=== PATIENT | male | born 1950 | race Caucasian/White ===

== ENCOUNTER 2017-09-01 07:55 | Day surgery (SDC) | payer MEDICARE, OTHER ==
[~2017-09-01] VITALS: Ht 180.3 cm; Wt 77.3 kg
[~2017-09-01 07:55] MED LIST: ASPI-496 PO; ATOR10TA PO; BUPIVACAINE/PF 0.25% ONE; EPINEPHRINE 1 MG/ML, 1ML ONE; ESOM20CA PO; GABA300C10 PO; HYDR-3237 PO; LIDOCAINE/PF 0.5% ,50ML ONE; THROMBIN 5,000 UNIT VIAL TP ONE; VANCOMYCIN 1,000 MG ONE
[2017-09-01] MEDS ORDERED: LACTATED RINGERS 1,000 ML IV SCH (08:52)
[2017-09-01 08:54] VITALS: BP 131/83
[2017-09-01] MEDS ORDERED: LIDOCAINE 1%, 2ML SQ PRN (09:00)
[2017-09-01] MEDS ORDERED: SUFentanil 50 MCG/ML, 1ML ONE (09:57)
[2017-09-01] MEDS ORDERED: MIDAZOLAM 1 MG/ML, 2ML ONE (09:57)
[2017-09-01] MEDS ORDERED: DEXAMETHASONE 4 MG/ML, 1ML ONE (10:38)
[2017-09-01] MEDS ORDERED: ROCURONIUM 10MG/ML,5ML ONE (10:38)
[2017-09-01] MEDS ORDERED: LIDOCAINE-MPF 2% ,5ML ONE (10:39)
[2017-09-01] MEDS ORDERED: PROPOFOL 10 MG/ML, 20ML ONE (10:39)
[2017-09-01] MEDS ORDERED: CEFAZOLIN 1,000 MG ONE ×2 (10:50)
[2017-09-01] MEDS ORDERED: PHENYLEPHRINE 10 MG/ML ONE (11:06)
[2017-09-01] MEDS ORDERED: ONDANSETRON 2MG/ML, 2ML ONE ×2 (12:11)
[2017-09-01] MEDS ORDERED: GLYCOPYRROLATE 0.2MG/1ML, 5ML ONE (12:25)
[2017-09-01] MEDS ORDERED: NEOSTIGMINE 1 MG/ML, 10ML ONE (12:25)
[2017-09-01] MEDS ORDERED: FENTANYL PF 100 MCG/2ML IV PRN (13:00)
[2017-09-01] MEDS ORDERED: hydrALAzine 20 MG/ML, 1ML IV PRN (13:00)
[2017-09-01] MEDS ORDERED: ACETAMINOPHEN 325 MG TABLET PO PRN (13:00)
[2017-09-01] MEDS ORDERED: MEPERIDINE/PF 25MG/0.5ML IVPush PRN (13:00)
[2017-09-01] MEDS ORDERED: LABETALOL 5MG/ML, 20ML IV PRN (13:00)
[2017-09-01] MEDS ORDERED: LORazepam 2 MG/ML, 1ML IVPush PRN (13:00)
[2017-09-01] MEDS ORDERED: PROMETHAZINE 25 MG/ML, 1ML IV PRN (13:00)
[2017-09-01] MEDS ORDERED: HYDROmorphone 1 MG/ML, 1ML IV PRN (13:00)
[2017-09-01] MEDS ORDERED: OXYcodone 5 MG/5 ML ORAL.SOL UDC PO PRN (13:00)
[2017-09-01] MEDS ORDERED: ALBUTEROL SULFATE 2.5 MG/3 ML NPPB PRN (13:00)
[2017-09-01] MEDS ORDERED: ONDANSETRON 2MG/ML, 2ML IVPush PRN (13:00)
[2017-09-01] MEDS ORDERED: FENTANYL PF 100 MCG/2ML ONE (13:08)
[2017-09-01] MEDS ORDERED: ACETAMINOPHEN 650 MG/20.3 ML UDC ONE (13:08)
[2017-09-01] MEDS ORDERED: MEPERIDINE/PF 25MG/0.5ML ONE (13:08)
[2017-09-01] MEDS ORDERED: OXYcodone 5 MG/5 ML ORAL.SOL UDC ONE (13:09)
[2017-09-01] MEDS ORDERED: HYDROcodone/APAP 10/325 MG TABLET ONE (15:15)
[2017-09-01] MEDS ORDERED: HYDROcodone/APAP 10/325 MG TABLET PO PRN (15:30)
== END 2017-09-01 15:38 ==
LOC: OUT 07:55
PROVIDERS: ATTEND Orthopaedic Surgery Orthopaedic Surgery of the Spine
DX: M51.26 Other intervertebral disc displacement, lumbar region (principal); F17.210 Nicotine dependence, cigarettes, uncomplicated
CPT/HCPCS: 63056; 72100; J0171; J0690; J1100; J2001; J2175; J2250; J2370; J2405; J2704; J2710; J3010; J3370; J3490